=== PATIENT | female | born 1945 | race Caucasian/White ===

== ENCOUNTER 2016-05-04 12:29 | Inpatient (IN) | payer MEDICAID, MEDICARE ==
[~2016-05-04] VITALS: Ht 152.4 cm; Wt 86.2 kg
[~2016-05-04 12:29] MED LIST: ACET500T68 PO; ACYC400T PO; ALBU0.63 NEB; AMLO10TA2 PO; ASPI81TA9 PO; ATOR20TA58 PO; BUDE10.2 IH; CARV6.252 PO; CHOL10003 PO; D-ME118S2 PO; ESCI10TA PO; GABA600T2 PO; INSU100I27 SQ; INSU100V13 SQ; INSU100V9 SQ; LEVO750T31 PO; LOSA100T6 PO; LOSA1TAB17 PO; METF500T4 PO; MONT10TA6 PO; POTA10TA5 PO; PRED20TA PO; VENTOLIN HFA18 GM IH
[2016-05-04] MEDS ORDERED: FENTANYL PF 100 MCG/2 ML VIAL. IV PRN ×2 (13:30→14:30)
[2016-05-04 13:31] LABS: BASO % 0 % (0-3); EOS % 1 % (0-3); HEMATOCRIT 43.7 % (36.0-47.0); HEMOGLOBIN 14.2 g/dL (12.0-15.5); LYMPH # 1.1 x10^3/uL (1.0-4.8); LYMPH % 17 % (24-48); MEAN CORPUSCULAR HEMOGLOBIN 34 pg (25-35); MEAN CORPUSCULAR HGB CONC 33 g/dL (31-37); MEAN CORPUSCULAR VOLUME 104 fL (79-100); MONO % 6 % (0-9); NEUT % 75 % (31-73); PLATELET COUNT 172 x10^3/uL (140-400); RED BLOOD COUNT 4.21 x10^6/uL (3.50-5.40); RED CELL DISTRIBUTION WIDTH 13.2 % (11.5-14.5); WHITE BLOOD COUNT 6.3 x10^3/uL (4.0-11.0)
[2016-05-04 13:40] LABS: CALCIUM 8.6 mg/dL (8.5-10.1); CREATININE 1.6 mg/dL (0.6-1.0); GFR 32.1; POTASSIUM 5.8 mmol/L (3.5-5.1)
[2016-05-04 13:45] LABS: ALBUMIN 3.6 g/dL (3.4-5.0); ALBUMIN/GLOBULIN RATIO 0.9 (1.0-1.7); TOTAL BILIRUBIN 0.3 mg/dL (0.2-1.0); TOTAL PROTEIN 7.6 g/dL (6.4-8.2)
[2016-05-04 13:46] LABS: BILIRUBIN,URINE NEGATIVE (NEG); GLUCOSE,URINE >=1000 mg/dL (NEG); NITRITE,URINE NEGATIVE (NEG); PH,URINE 5.5; PROTEIN,URINE 100 mg/dL (NEG-TRACE); UROBILINOGEN,URINE 0.2 mg/dL (0.2 mg/dL)
[2016-05-04 14:03] LABS: BACTERIA,URINE 0 /HPF (0-FEW); RBC,URINE TNTC /HPF (0-2); SQUAMOUS EPITHELIAL CELL,UR FEW /LPF; WBC,URINE RARE /HPF (0-4)
--- NOTE | 2016-05-04 14:11 | RAD ---
Indication: Severe left flank pain beginning this morning. Technique: Axial images and coronal and sagittal reformatted images are provided. No comparison is available. One or more of the following individualized dose reduction techniques were utilized for this examination: 1. Automated exposure control 2. Adjustment of the mA and/or kV according to patient size 3. Use of iterative reconstruction technique Findings: There is atelectasis in the lung bases. There is no pleural effusion. The heart is not enlarged. Coronary artery calcifications are noted. Solid organ evaluation is limited without contrast. There is fatty infiltration of the liver. Gallbladder is unremarkable. Spleen is not enlarged. Pancreas and adrenals are unremarkable. There is no definite right ureteral calculus, right ureter hard to follow. There is a nonobstructing 2 mm calculus on the left. Left ureter is mildly dilated in its entirety, with no definite obstructing calculus. There is atheromatous disease in the abdominal aorta without aneurysm. There is a duodenal diverticulum. There is no small bowel obstruction or mural thickening. There are a few diverticula in the colon but no findings of diverticulitis. Normal appendix is noted. There is no bladder calculus. Probable cyst or follicle in the right ovary measures about 3 cm. There is no free pelvic fluid. There are mild degenerative changes in the spine. Impression: 1. Nonobstructing left renal calculus. 2. Dilated left ureter without obstructing stone identified. Differential considerations would include recently passed stone as well as pyelonephritis and ureteritis. Please correlate with UA/UC.
--- NOTE | 2016-05-04 14:25 | PHYS DOC ---
Past Medical History Past Medical History: Asthma, CAD, CHF, COPD, Diabetes-Type II, Hypertension, [place] Additional Past Medical Histor: DIABETIC NEUROPATHY Past Surgical History: Alcohol Use: Occasionally Drug Use: None Adult General Chief Complaint Chief Complaint: ABDOMINAL PAIN HPI HPI Patient is a 70 year old Female brought to the ED by ambulance with the complaint of severe pain on the left side of her groin, abdomen, and back, which makes her think of when she had a kidney stone about 10 years ago. She was fine until this pain started this morning. She's had some nausea, no vomiting. No other GI symptoms. Denies UTI symptoms. No fever or chills. PCP at [facility] Review of Systems Review of Systems Constitutional: Denies fever or chills [] Eyes: Denies change in visual acuity, redness, or eye pain [] HENT: Denies nasal congestion or sore throat [] Respiratory: Denies cough or shortness of breath [] Cardiovascular: Denies chest pain GI: As in history of present illness : Denies dysuria or hematuria [] Musculoskeletal: Denies back pain or joint pain [] Integument: Denies rash or skin lesions [] Neurologic: Denies headache, focal weakness or sensory changes [] Endocrine: Denies polyuria or polydipsia [] Current Medications Current Medications Current Medications Medications (Trade) Dose Ordered Sig/Jarret Start Time Stop Time Status Last Admin Dose Admin Fentanyl Citrate (Fentanyl 2ml Vial) 25 mcg PRN Q15MIN PRN 05/04/16 13:30 05/05/16 13:29 05/04/16 14:27 25 MCG Allergies Allergies Allergies Coded Allergies Type Severity Reaction Last Updated Verified wool Allergy Intermediate 10/09/14 Yes Physical Exam Physical Exam Constitutional: Well developed, well nourished, no acute distress, non-toxic appearance. [] Alert, mentating normally. HENT: Normocephalic, atraumatic, bilateral external ears normal,, nose normal. [ ] Eyes: I, conjunctiva normal, no discharge. [] Neck: Normal range of motion,, no stridor. [] Cardiovascular:Heart rate regular rhythm, no murmur [] Lungs & Thorax: Bilateral breath sounds clear to auscultation [] Abdomen: Obese, nondistended. Patient indicates the area of pain from the left upper groin area around to the left flank with the distribution consistent with kidney stone. The abdomen is not particularly tender. No rebound or guarding. No mass, no pulsatile mass Skin: Warm, dry, no erythema, no rash. [] Back: No tenderness, no CVA tenderness. [] Extremities: No tenderness, no cyanosis, no clubbing, ROM intact, no edema. [] Neurologic: Alert and oriented X 3, normal motor function, normal sensory function, no focal deficits noted. [] Current Patient Data Vital Signs Vital Signs Date Time Temp Pulse Resp B/P Pulse Ox O2 Delivery O2 Flow Rate FiO2 05/04/16 14:00 65 20 132/80 94 Nasal Cannula 2 05/04/16 12:35 98.7 98.7 Lab Values Laboratory Tests Test 05/04/16 12:50 05/04/16 13:15 White Blood Count 6.3x10^3/uL (4.0-11.0) Red Blood Count 4.21x10^6/uL (3.50-5.40) Hemoglobin 14.2g/dL (12.0-15.5) Hematocrit 43.7% (36.0-47.0) Mean Corpuscular Volume 104fL (79-100) H Mean Corpuscular Hemoglobin 34pg (25-35) Mean Corpuscular Hemoglobin Concent 33g/dL (31-37) Red Cell Distribution Width 13.2% (11.5-14.5) Platelet Count 172x10^3/uL (140-400) Neutrophils (%) (Auto) 75% (31-73) H Lymphocytes (%) (Auto) 17% (24-48) L Monocytes (%) (Auto) 6% (0-9) Eosinophils (%) (Auto) 1% (0-3) Basophils (%) (Auto) 0% (0-3) Neutrophils # (Auto) 4.8x10^3uL (1.8-7.7) Lymphocytes # (Auto) 1.1x10^3/uL (1.0-4.8) Monocytes # (Auto) 0.4x10^3/uL (0.0-1.1) Eosinophils # (Auto) 0.1x10^3/uL (0.0-0.7) Basophils # (Auto) 0.0x10^3/uL (0.0-0.2) Sodium Level 139mmol/L (136-145) Potassium Level 5.8mmol/L (3.5-5.1) H Chloride Level 101mmol/L (98-107) Carbon Dioxide Level 26mmol/L (21-32) Anion Gap 12 (6-14) Blood Urea Nitrogen 45mg/dL (7-20) H Creatinine 1.6mg/dL (0.6-1.0) H Estimated GFR (Cockcroft-Gault) 32.1 BUN/Creatinine Ratio 28 (6-20) H Glucose Level 459mg/dL (70-99) H Calcium Level 8.6mg/dL (8.5-10.1) Total Bilirubin 0.3mg/dL (0.2-1.0) Aspartate Amino Transferase (AST) 17U/L (15-37) Alanine Aminotransferase (ALT) 25U/L (14-59) Alkaline Phosphatase 102U/L (46-116) Total Protein 7.6g/dL (6.4-8.2) Albumin 3.6g/dL (3.4-5.0) Albumin/Globulin Ratio 0.9 (1.0-1.7) L Lipase 185U/L (73-393) Urine Collection Type U cath Urine Color Yellow Urine Clarity Cloudy Urine pH 5.5 Urine Specific [place] 1.015 Urine Protein 100mg/dL (NEG-TRACE) Urine Glucose (UA) >=1000mg/dL (NEG) Urine Ketones (Stick) Negativemg/dL (NEG) Urine Blood Large (NEG) Urine Nitrite Negative (NEG) Urine Bilirubin Negative (NEG) Urine Urobilinogen Dipstick 0.2mg/dL (0.2 mg/dL) Urine Leukocyte Esterase Negative (NEG) Urine RBC Tntc/HPF (0-2) Urine WBC Rare/HPF (0-4) Urine Squamous Epithelial Cells Few/LPF Urine Transitional Epithelial Cells Occ/LPF Urine Renal Epithelial Cells /LPF Urine Bacteria 0/HPF (0-FEW) Urine Mucus Slight/LPF Laboratory Tests 05/04/16 12:50 Laboratory Tests 05/04/16 12:50 EKG EKG [] Radiology/Procedures Radiology/Procedures CT scan of the abdomen and pelvis read by the radiologist. There is no left ureter stone noted but there is evidence of left hydro-and consistent with left ureter stone. [] Course & Med Decision Making Course & Med Decision Making Pertinent Labs and Imaging studies reviewed. (See chart for details) 70-year-old female presents by EMS with left flank pain suggestive of left renal colic. She was given a dose of IV pain medicine on arrival and her pain went away and never did come back. Her CT scan was suggestive of left ureter stone but no stone was identified. I wonder if she may have passed the stone just as she got here, we did not collect the stone in the ED but it may be in her bladder or she may have passed it shortly after arrival to the ED. Urinalysis consistent with kidney stone as well. Labs consistent with some dehydration with acute kidney injury. Patient lives alone. I suggest admission to the hospital for IV fluids and resolution of her dehydration and acute kidney injury and she is agreeable to that suggestion. I discussed the case with Dr. Hayward, [facility], who will admit the patient. I wrote bridge orders. The patient remained stable and pain-free after initial resolution of her pain in the emergency department. [] Dragon Disclaimer Dragon Disclaimer This electronic medical record was generated, in whole or in part, using a voice recognition dictation system. Departure Departure Impression: Primary Impression: Dehydration Additional Impression: Elevated serum creatinine Disposition: ADMITTED INPATIENT Admitting Physician: Other Condition: STABLE Referrals: UNKNOWN PCP NAME (PCP) Problem Qualifiers STERLING CONDE MD May 04, 2016 14:25
[2016-05-04] MEDS ORDERED: IV NORMAL SALINE 1000ML BAG 1,000 ML IV ONE (14:30)
[2016-05-04] MEDS ORDERED: ONDANSETRON PF 4 MG/2 ML VIAL. IV PRN (14:30)
--- NOTE | 2016-05-04 15:49 | ACF ---
Admission Forms Criteria DEHYDRATION Clinical Indications for Admission to Inpatient Care (Place 'X' for any and all applicable criteria): Admission is indicated for ANY ONE of the following (1)(2)(3)(4)(5): [X]I. Inpatient admission required rather than observation care (see Dehydration: Observation Care guideline as appropriate) because of ANY ONE of the following: [ ]a) Vomiting that is severe or persistent [ ]b) Severe electrolyte abnormalities requiring inpatient care [ ]c) Hemodynamic instability [ ]d) IV fluid to replace significant ongoing losses (greater than 3 L/m2 per day (10) (11) [ ]e) Parenteral nutrition regimen that must be implemented on inpatient basis [X]f) Other condition,treatment or monitoring requiring inpatient admission [ ]II. Serious cause for dehydration requiring acute hospitalization (eg, bowel obstruction, increased intracranial pressure, infectious cause) Extended stay beyond goal length of stay may be needed for(1)(3 )(4)(17): [ ]a) Chronic severe dehydration [ ]b) Persistent vital sign changes, severe electrolyte imbalance, or diagnosed cause of dehydration that requires continued hospitalization (eg, bowel obstruction, increased intracranial pressure) [ ]c) Older patients (65 years or older) [ ]d) Severe comorbid illness (eg, renal failure, heart failure, poorly controlled diabetes) The original [employer] content created by [employer] has been revised. The portions of the content which have been revised are identified through the use of italic text or in bold, and [facility] has neither reviewed nor approved the modified material. All other unmodified content is copyright [employer]. Please see references footnoted in the original [employer] edition 2016 Admission Criteria Met?: Yes EFRAIN RUEDA May 04, 2016 15:49
[2016-05-04 16:15] VITALS: BP 102/45
[2016-05-04] MEDS ORDERED: INSU100V13 SQ (17:26)
[2016-05-04] MEDS ORDERED: NON FORMULARY ITEM (Albuterol Sulfate (Ventolin Hfa Inhaler) 2 PUFF) IH SCH (18:30)
[2016-05-04] MEDS ORDERED: DEXTROSE 50% 25 GM / 50ML DISP.SYRIN. IV PRN (18:30)
[2016-05-04] MEDS: CARVEDILOL 6.25 MG TABLET PO SCH (18:30)
[2016-05-04] MEDS ORDERED: ALBUTEROL SULFATE 2.5 MG/3 ML NEBU. NEB PRN (18:45)
[2016-05-04 19:00] VITALS: BP 157/58
[2016-05-04] MEDS ORDERED: INSULIN ASPART 300 UNITS/3 ML INSULN.PEN SQ ONE (19:30)
[2016-05-04] MEDS: IV NORMAL SALINE 1000ML BAG 1,000 ML IV PRN (19:36)
--- NOTE | 2016-05-04 19:55 | HP ---
ADMIT DATE: 05/04/2016 CHIEF COMPLAINT: Flank pain, abdominal pain left. HISTORY OF PRESENT ILLNESS: The patient is a 70-year-old woman with COPD, CAD, CHF, ongoing smoking as well as history of renal stones 10+ years ago. She presents to the Emergency Room with severe left upper as well as left flank pain that started this morning. She relates the pain was at least 10/10, sharp, stabbing. She immediately thought that this may be a kidney stone as she had similar symptoms several years back when she had a kidney stone on the right. In the Emergency Room, she was treated with pain medications and CAT scan was obtained. The pain, however, seemed to lindsey by that time. CAT scan did not reveal any stone. The patient has not needed any IV narcotics since. However, in her workup, she was found with a blood sugar greater than 400 as well as labs consistent with acute kidney injury. She was therefore admitted for rehydration, monitoring of blood sugars and pain. On further questioning, the patient relates that her diabetes is actually under very poor control as she typically runs in the 300-400s. PAST MEDICAL HISTORY: CAD, CHF, hypertension, hyperlipidemia, diabetes mellitus, COPD, diabetic neuropathy. FAMILY HISTORY: Positive for diabetes and heart disease in brother as well as parents. SOCIAL HISTORY: Lives by herself, continues to smoke few cigarettes a day, although has had a much heavier habit in the past. Denies any alcohol use. ALLERGIES: No known drug allergies. MEDICATIONS: Home medications reconciled with MAR. REVIEW OF SYSTEMS: The patient feels much better. Pain is minimal in the left abdomen to flank area. Denies any ongoing hematuria. No chest pain, shortness of breath. Rest of organ system review is negative. PHYSICAL EXAMINATION: VITAL SIGNS: Today show blood pressure of 102/45, heart rate of 49, respiratory rate at 18. She is afebrile. GENERAL: This is a morbidly obese 70-year-old woman, alert and oriented, in no acute distress. HEENT: Shows no scleral icterus. Oral mucosa is pink and moist. NECK: Supple. LUNGS: Clear to auscultation bilaterally. CARDIOVASCULAR: Regular rate and rhythm. ABDOMEN: Massively obese. Tenderness to palpation in left upper quadrant, no pain to auscultation in the left flank. Organs could not be palpated. EXTREMITIES: Show no edema. SKIN: Warm, soft dry. LABORATORY DATA: CBC from today shows a WBC of 6.3, hemoglobin 14.2, MCV of 104, platelets of 172, BUN and creatinine of 45 and 1.6, potassium at 5.8, glucose at 459. LFTs within normal limits. Urine negative for infectious symptoms, greater than 1000 for glucose. IMAGING: CT of the abdomen shows nonobstructing left renal calculus, dilated left ureter without obstructing stone identified. ASSESSMENT AND PLAN: The patient is a 70-year-old woman who presented with what appears to be renal colic, although stone is no longer identified and symptoms have resolved leading to the conclusion that she actually passed the stone in the Emergency Room. Nevertheless, with uncontrolled diabetes as well as signs of acute kidney injury, we will admit, rehydrate and try and get her blood sugar back under control. She admits that she did not take her insulin this morning, although apparently her blood sugar control is rather poor. We will obtain hemoglobin A1c and insulin sliding scale. By her doses of b.i.d. Levemir and meal dosing, she appears to be insulin resistant. We will continue all her other home medications. She does have a diagnosis of COPD already and continues to smoke. I discussed with her that this really is not an option and she must stop especially given her heart issues as well. Prophylaxis will be instituted with heparin and H2 luis angel. MARIA T CHENG MD DR: LORNA/nts JOB#: [id number] / [id number] NICOLE
[2016-05-04] MEDS: BUDESONIDE 0.5 MG/2 ML NEBU NEB SCH (20:39)
[2016-05-04] MEDS: ALBUTEROL SULFATE 2.5 MG/3 ML NEBU. NEB SCH (20:39)
[2016-05-04] MEDS ORDERED: INSULIN ASPART 300 UNITS/3 ML INSULN.PEN SQ STA (20:54)
[2016-05-04] MEDS: MONTELUKAST SODIUM 10 MG TABLET. PO SCH (20:58)
[2016-05-04] MEDS: GABAPENTIN 300 MG CAPSULE. PO SCH (20:58)
[2016-05-04] MEDS: ATORVASTATIN CALCIUM 20 MG TABLET PO SCH (20:58)
[2016-05-04] MEDS ORDERED: NON FORMULARY ITEM (Budesonide/Formoterol Fumarate (Symbicort 160-4.5 Mcg Inhaler) 2 PUFF) IH SCH (21:00)
[2016-05-04] MEDS ORDERED: NON FORMULARY ITEM (Albuterol Sulfate (Albuterol Sulfate Neb Soln) 1 VIAL) NEB SCH (21:00)
[2016-05-04] MEDS: INSULIN DETEMIR 300 UNITS/3 ML INSULN.PEN. SQ SCH (21:15)
[2016-05-04 23:00] VITALS: BP 109/33
[2016-05-05] MEDS: IV NORMAL SALINE 1000ML BAG 1,000 ML IV PRN ×2 (02:33→08:14)
[2016-05-05 03:00] VITALS: BP 127/42
[2016-05-05 07:00] VITALS: BP 133/45
[2016-05-05] MEDS: BUDESONIDE 0.5 MG/2 ML NEBU NEB SCH ×2 (07:24→19:44)
[2016-05-05] MEDS: ALBUTEROL SULFATE 2.5 MG/3 ML NEBU. NEB SCH ×4 (07:25→19:44)
[2016-05-05] MEDS: INSULIN ASPART 300 UNITS/3 ML INSULN.PEN SQ SCH ×4 (07:30→17:43)
[2016-05-05] MEDS: ASPIRIN ENTERIC COATED 81 MG TABLET.DR. PO SCH (08:12)
[2016-05-05] MEDS: GABAPENTIN 300 MG CAPSULE. PO SCH ×3 (08:12→21:04)
[2016-05-05] MEDS: ESCITALOPRAM 10 MG TABLET. PO SCH (08:12)
[2016-05-05] MEDS: CARVEDILOL 6.25 MG TABLET PO SCH ×2 (08:13→17:31)
[2016-05-05] MEDS: AMLODIPINE BESYLATE 10 MG TABLET PO SCH (08:13)
[2016-05-05] MEDS: LOSARTAN POTASSIUM 50 MG TABLET. PO SCH (08:14)
[2016-05-05] MEDS: INSULIN DETEMIR 300 UNITS/3 ML INSULN.PEN. SQ SCH (08:23)
--- NOTE | 2016-05-05 09:54 | PDOC ---
PROGRESS NOTES Chief Complaint Chief Complaint renal colic, flank pain better acute renal failure hyperkalemia obesitiy, BMI 37 COPD, 02 req. on 2 l at home, DM2, poor control History of Present Illness History of Present Illness feels much better today, no pain hypoglycemia this AM no other noted s Vitals Vitals Vital Signs Date Time Temp Pulse Resp B/P Pulse Ox O2 Delivery O2 Flow Rate FiO2 05/05/16 08:14 58 133/45 05/05/16 07:25 97 Nasal Cannula 2.0 05/05/16 07:00 97.5 20 97.5 Physical Exam General: Alert, Oriented X3, Cooperative Heart: Regular rate Lungs: Clear Abdomen: Normal bowel sounds, Soft Extremities: No clubbing Skin: No rashes Labs LABS Laboratory Tests Test 05/04/16 12:50 05/04/16 13:15 05/04/16 16:11 05/04/16 20:26 White Blood Count 6.3x10^3/uL (4.0-11.0) Red Blood Count 4.21x10^6/uL (3.50-5.40) Hemoglobin 14.2g/dL (12.0-15.5) Hematocrit 43.7% (36.0-47.0) Mean Corpuscular Volume 104fL (79-100) Mean Corpuscular Hemoglobin 34pg (25-35) Mean Corpuscular Hemoglobin Concent 33g/dL (31-37) Red Cell Distribution Width 13.2% (11.5-14.5) Platelet Count 172x10^3/uL (140-400) Neutrophils (%) (Auto) 75% (31-73) Lymphocytes (%) (Auto) 17% (24-48) Monocytes (%) (Auto) 6% (0-9) Eosinophils (%) (Auto) 1% (0-3) Basophils (%) (Auto) 0% (0-3) Neutrophils # (Auto) 4.8x10^3uL (1.8-7.7) Lymphocytes # (Auto) 1.1x10^3/uL (1.0-4.8) Monocytes # (Auto) 0.4x10^3/uL (0.0-1.1) Eosinophils # (Auto) 0.1x10^3/uL (0.0-0.7) Basophils # (Auto) 0.0x10^3/uL (0.0-0.2) Sodium Level 139mmol/L (136-145) Potassium Level 5.8mmol/L (3.5-5.1) Chloride Level 101mmol/L (98-107) Carbon Dioxide Level 26mmol/L (21-32) Anion Gap 12 (6-14) Blood Urea Nitrogen 45mg/dL (7-20) Creatinine 1.6mg/dL (0.6-1.0) Estimated GFR (Cockcroft-Gault) 32.1 BUN/Creatinine Ratio 28 (6-20) Glucose Level 459mg/dL (70-99) Calcium Level 8.6mg/dL (8.5-10.1) Total Bilirubin 0.3mg/dL (0.2-1.0) Aspartate Amino Transf (AST/SGOT) 17U/L (15-37) Alanine Aminotransferase (ALT/SGPT) 25U/L (14-59) Alkaline Phosphatase 102U/L (46-116) Total Protein 7.6g/dL (6.4-8.2) Albumin 3.6g/dL (3.4-5.0) Albumin/Globulin Ratio 0.9 (1.0-1.7) Lipase 185U/L (73-393) Urine Collection Type U cath Urine Color Yellow Urine Clarity Cloudy Urine pH 5.5 Urine Specific [place] 1.015 Urine Protein 100mg/dL (NEG-TRACE) Urine Glucose (UA) >=1000mg/dL (NEG) Urine Ketones (Stick) Negativemg/dL (NEG) Urine Blood Large (NEG) Urine Nitrite Negative (NEG) Urine Bilirubin Negative (NEG) Urine Urobilinogen Dipstick 0.2mg/dL (0.2 mg/dL) Urine Leukocyte Esterase Negative (NEG) Urine RBC Tntc/HPF (0-2) Urine WBC Rare/HPF (0-4) Urine Squamous Epithelial Cells Few/LPF Urine Transitional Epithelial Cells Occ/LPF Urine Renal Epithelial Cells /LPF Urine Bacteria 0/HPF (0-FEW) Urine Mucus Slight/LPF Glucose (Fingerstick) 483mg/dL (70-99) 500mg/dL (70-99) Test 05/04/16 21:41 05/05/16 07:37 05/05/16 08:24 Glucose (Fingerstick) 385mg/dL (70-99) 42mg/dL (70-99) 231mg/dL (70-99) Review of Systems Review of Systems no n.v.d breathing at baseline Assessment and Plan Assessmemt and Plan consult renal, check labs now needs soc work help, has not ride to doctors appt has not Pulm f/u, consult Dr. Stewart to follow outpatient Problems Medical Problems: (1) Dehydration Status: Acute (2) Elevated serum creatinine Status: Acute Problems: Comment Review of Relevant I have reviewed the following items elisha (where applicable) has been applied. Labs Laboratory Tests Test 05/04/16 12:50 05/04/16 13:15 05/04/16 16:11 05/04/16 20:26 White Blood Count 6.3x10^3/uL (4.0-11.0) Red Blood Count 4.21x10^6/uL (3.50-5.40) Hemoglobin 14.2g/dL (12.0-15.5) Hematocrit 43.7% (36.0-47.0) Mean Corpuscular Volume 104fL (79-100) Mean Corpuscular Hemoglobin 34pg (25-35) Mean Corpuscular Hemoglobin Concent 33g/dL (31-37) Red Cell Distribution Width 13.2% (11.5-14.5) Platelet Count 172x10^3/uL (140-400) Neutrophils (%) (Auto) 75% (31-73) Lymphocytes (%) (Auto) 17% (24-48) Monocytes (%) (Auto) 6% (0-9) Eosinophils (%) (Auto) 1% (0-3) Basophils (%) (Auto) 0% (0-3) Neutrophils # (Auto) 4.8x10^3uL (1.8-7.7) Lymphocytes # (Auto) 1.1x10^3/uL (1.0-4.8) Monocytes # (Auto) 0.4x10^3/uL (0.0-1.1) Eosinophils # (Auto) 0.1x10^3/uL (0.0-0.7) Basophils # (Auto) 0.0x10^3/uL (0.0-0.2) Sodium Level 139mmol/L (136-145) Potassium Level 5.8mmol/L (3.5-5.1) Chloride Level 101mmol/L (98-107) Carbon Dioxide Level 26mmol/L (21-32) Anion Gap 12 (6-14) Blood Urea Nitrogen 45mg/dL (7-20) Creatinine 1.6mg/dL (0.6-1.0) Estimated GFR (Cockcroft-Gault) 32.1 BUN/Creatinine Ratio 28 (6-20) Glucose Level 459mg/dL (70-99) Calcium Level 8.6mg/dL (8.5-10.1) Total Bilirubin 0.3mg/dL (0.2-1.0) Aspartate Amino Transf (AST/SGOT) 17U/L (15-37) Alanine Aminotransferase (ALT/SGPT) 25U/L (14-59) Alkaline Phosphatase 102U/L (46-116) Total Protein 7.6g/dL (6.4-8.2) Albumin 3.6g/dL (3.4-5.0) Albumin/Globulin Ratio 0.9 (1.0-1.7) Lipase 185U/L (73-393) Urine Collection Type U cath Urine Color Yellow Urine Clarity Cloudy Urine pH 5.5 Urine Specific [place] 1.015 Urine Protein 100mg/dL (NEG-TRACE) Urine Glucose (UA) >=1000mg/dL (NEG) Urine Ketones (Stick) Negativemg/dL (NEG) Urine Blood Large (NEG) Urine Nitrite Negative (NEG) Urine Bilirubin Negative (NEG) Urine Urobilinogen Dipstick 0.2mg/dL (0.2 mg/dL) Urine Leukocyte Esterase Negative (NEG) Urine RBC Tntc/HPF (0-2) Urine WBC Rare/HPF (0-4) Urine Squamous Epithelial Cells Few/LPF Urine Transitional Epithelial Cells Occ/LPF Urine Renal Epithelial Cells /LPF Urine Bacteria 0/HPF (0-FEW) Urine Mucus Slight/LPF Glucose (Fingerstick) 483mg/dL (70-99) 500mg/dL (70-99) Test 05/04/16 21:41 05/05/16 07:37 05/05/16 08:24 Glucose (Fingerstick) 385mg/dL (70-99) 42mg/dL (70-99) 231mg/dL (70-99) Laboratory Tests Test 05/04/16 12:50 05/04/16 13:15 05/04/16 16:11 05/04/16 20:26 White Blood Count 6.3x10^3/uL (4.0-11.0) Red Blood Count 4.21x10^6/uL (3.50-5.40) Hemoglobin 14.2g/dL (12.0-15.5) Hematocrit 43.7% (36.0-47.0) Mean Corpuscular Volume 104fL (79-100) Mean Corpuscular Hemoglobin 34pg (25-35) Mean Corpuscular Hemoglobin Concent 33g/dL (31-37) Red Cell Distribution Width 13.2% (11.5-14.5) Platelet Count 172x10^3/uL (140-400) Neutrophils (%) (Auto) 75% (31-73) Lymphocytes (%) (Auto) 17% (24-48) Monocytes (%) (Auto) 6% (0-9) Eosinophils (%) (Auto) 1% (0-3) Basophils (%) (Auto) 0% (0-3) Neutrophils # (Auto) 4.8x10^3uL (1.8-7.7) Lymphocytes # (Auto) 1.1x10^3/uL (1.0-4.8) Monocytes # (Auto) 0.4x10^3/uL (0.0-1.1) Eosinophils # (Auto) 0.1x10^3/uL (0.0-0.7) Basophils # (Auto) 0.0x10^3/uL (0.0-0.2) Sodium Level 139mmol/L (136-145) Potassium Level 5.8mmol/L (3.5-5.1) Chloride Level 101mmol/L (98-107) Carbon Dioxide Level 26mmol/L (21-32) Anion Gap 12 (6-14) Blood Urea Nitrogen 45mg/dL (7-20) Creatinine 1.6mg/dL (0.6-1.0) Estimated GFR (Cockcroft-Gault) 32.1 BUN/Creatinine Ratio 28 (6-20) Glucose Level 459mg/dL (70-99) Calcium Level 8.6mg/dL (8.5-10.1) Total Bilirubin 0.3mg/dL (0.2-1.0) Aspartate Amino Transf (AST/SGOT) 17U/L (15-37) Alanine Aminotransferase (ALT/SGPT) 25U/L (14-59) Alkaline Phosphatase 102U/L (46-116) Total Protein 7.6g/dL (6.4-8.2) Albumin 3.6g/dL (3.4-5.0) Albumin/Globulin Ratio 0.9 (1.0-1.7) Lipase 185U/L (73-393) Urine Collection Type U cath Urine Color Yellow Urine Clarity Cloudy Urine pH 5.5 Urine Specific [place] 1.015 Urine Protein 100mg/dL (NEG-TRACE) Urine Glucose (UA) >=1000mg/dL (NEG) Urine Ketones (Stick) Negativemg/dL (NEG) Urine Blood Large (NEG) Urine Nitrite Negative (NEG) Urine Bilirubin Negative (NEG) Urine Urobilinogen Dipstick 0.2mg/dL (0.2 mg/dL) Urine Leukocyte Esterase Negative (NEG) Urine RBC Tntc/HPF (0-2) Urine WBC Rare/HPF (0-4) Urine Squamous Epithelial Cells Few/LPF Urine Transitional Epithelial Cells Occ/LPF Urine Renal Epithelial Cells /LPF Urine Bacteria 0/HPF (0-FEW) Urine Mucus Slight/LPF Glucose (Fingerstick) 483mg/dL (70-99) 500mg/dL (70-99) Test 05/04/16 21:41 05/05/16 07:37 05/05/16 08:24 Glucose (Fingerstick) 385mg/dL (70-99) 42mg/dL (70-99) 231mg/dL (70-99) Medications Current Medications Fentanyl Citrate 25 mcg 25 mcg PRN Q15MIN PRN IV PAIN GREATER THAN 3/10 Last administered on 05/04/16 14:27; Start 05/04/16 at 13:30; Stop 05/05/16 at 13:29 Sodium Chloride (Iv Sodium Chloride 0.9% 1000ml Bag) 1,000 ml @ 1,000 mls/hr 1X ONCE IV Last administered on 05/04/16 14:26; Start 05/04/16 at 14:30; Stop 05/05/16 at 09:44; Status DC Ondansetron HCl (Zofran) 4 mg PRN Q8HRS PRN IV NAUSEA/VOMITING; Start 05/04/16 at 14:30; Stop 05/05/16 at 14:29 Fentanyl Citrate 25 mcg 25 mcg PRN Q2HR PRN IV PAIN; Start 05/04/16 at 14:30; Stop 05/05/16 at 14:29 Sodium Chloride (Iv Sodium Chloride 0.9% 1000ml Bag) 1,000 ml @ 75 mls/hr CONT PRN IV SEE COMMENTS Last administered on 05/05/16 08:14; Start 05/04/16 at 18 :30 Dextrose 12.5 gm PRN Q15MIN PRN IV SEE COMMENTS Last administered on 05/05/16 08:10; Start 05/04/16 at 18:30 Amlodipine Besylate (Norvasc) 10 mg DAILY PO Last administered on 05/05/16 08: 13; Start 05/05/16 at 09:00 Aspirin (Ecotrin) 81 mg DAILY PO Last administered on 05/05/16 08:12; Start at 09:00 Atorvastatin Calcium (Lipitor) 20 mg QHS PO Last administered on 05/04/16 20: 58; Start 05/04/16 at 21:00 Carvedilol (Coreg) 6.25 mg BIDWMEALS PO Last administered on 05/05/16 08:13; Start 05/04/16 at 18:30 Escitalopram Oxalate (Lexapro) 10 mg DAILY PO Last administered on 05/05/16 08 :12; Start 05/05/16 at 09:00 Montelukast Sodium (Singulair) 10 mg QHS PO Last administered on 05/04/16 20: 58; Start 05/04/16 at 21:00 Non-Formulary Medication 1 vial QID NEB ; Start 05/04/16 at 21:00; Stop at 21:00; Status DC Non-Formulary Medication 2 puff PRN Q4-6HRS IH ; Start 05/04/16 at 18:30; Stop 05/04/16 at 19:01; Status DC Non-Formulary Medication 2 puff BID IH ; Start 05/04/16 at 21:00; Stop 05/04/16 at 21:00; Status DC Gabapentin (Neurontin) 600 mg TID PO Last administered on 05/05/16 08:12; Start 05/04/16 at 21:00 Insulin Detemir (Levemir) 90 units BID SQ Last administered on 05/05/16 08:23 ; Start 05/04/16 at 21:00 Insulin Aspart (Novolog) 90 units TIDWMEALS SQ ; Start 05/05/16 at 07:30 Losartan Potassium (Cozaar) 100 mg DAILY PO Last administered on 05/05/16 08: 14; Start 05/05/16 at 09:00 Budesonide (Pulmicort) 0.5 mg RTBID NEB Last administered on 05/05/16 07:24; Start 05/04/16 at 20:00 Albuterol Sulfate (Ventolin Neb Soln) 2.5 mg PRN Q4HRS PRN NEB SHORTNESS OF BREATH; Start 05/04/16 at 18:45 Albuterol Sulfate (Ventolin Neb Soln) 2.5 mg RTQID NEB Last administered on 07:25; Start 05/04/16 at 20:00 Insulin Aspart (Novolog) 40 units 1X ONCE SQ Last administered on 05/04/16 19 :49; Start 05/04/16 at 19:30; Stop 05/04/16 at 19:31; Status DC Insulin Aspart (Novolog) 40 units ONCE STAT SQ Last administered on 05/04/16 21:15; Start 05/04/16 at 20:54; Stop 05/04/16 at 20:58; Status DC Active Scripts Active Losartan Potassium 100 Mg Tablet 100 Mg PO DAILY Singulair Tablet (Montelukast Sodium) 10 Mg Tablet 10 Mg PO QHS Reported Levemir (Insulin Detemir) 100 Unit/1 Ml Vial 90 Unit SQ BID Gabapentin 600 Mg Tablet 1 Tab PO TID Apidra (Insulin Glulisine) 100 Unit/1 Ml Vial 90 Unit SQ TIDWMEALS Escitalopram Oxalate 10 Mg Tablet 1 Tab PO DAILY Carvedilol 6.25 Mg Tablet 1 Tab PO BID Ventolin Hfa Inhaler (Albuterol Sulfate) 18 Gm Hfa.aer.ad 2 Puff IH PRN Q4-6HRS Albuterol Sulfate Neb Soln (Albuterol Sulfate) 0.63 Mg/3 Ml Vial.neb 1 Vial NEB QID Symbicort 160-4.5 Mcg Inhaler (Budesonide/Formoterol Fumarate) 10.2 Gm Hfa.aer.ad 2 Puff IH BID Atorvastatin Calcium 20 Mg Tablet 1 Tab PO DAILY Amlodipine Besylate 10 Mg Tablet 1 Tab PO DAILY Aspirin Ec (Aspirin) 81 Mg Tablet.dr 1 Tab PO DAILY Vitals/I & O Vital Sign - Last 24 Hours 05/04/16 05/04/16 05/04/16 05/04/16 12:35 13:00 14:00 15:00 Temp 98.7 98.7 Pulse 63 77 65 65 Resp 24 20 20 20 B/P 165/72 144/78 132/80 134/81 Pulse Ox 90 94 94 94 O2 Delivery Room Air Nasal Cannula Nasal Cannula Nasal Cannula O2 Flow Rate 2 2 2 05/04/16 05/04/16 05/04/16 05/04/16 16:00 16:15 16:15 19:00 Temp 98.1 98.1 97.8 98.1 98.1 97.8 Pulse 49 49 63 Resp 18 18 18 B/P 102/45 102/45 157/58 Pulse Ox 94 94 90 O2 Delivery Nasal Cannula Nasal Cannula Nasal Cannula Room Air O2 Flow Rate 2.0 1.0 1.0 05/04/16 05/04/16 05/04/16 05/04/16 20:00 20:43 20:44 23:00 Temp 98.2 98.2 Pulse 64 Resp 18 B/P 109/33 Pulse Ox 92 92 95 O2 Delivery Nasal Cannula Room Air Room Air Room Air O2 Flow Rate 2.0 05/05/16 05/05/16 05/05/16 05/05/16 03:00 07:00 07:25 08:13 Temp 98.2 97.5 98.2 97.5 Pulse 63 58 58 Resp 18 20 B/P 127/42 133/45 133/45 Pulse Ox 93 98 97 O2 Delivery Nasal Cannula Nasal Cannula Nasal Cannula O2 Flow Rate 2.0 2.0 2.0 05/05/16 05/05/16 08:13 08:14 Pulse 58 58 B/P 133/45 133/45 Intake and Output 05/04/16 05/04/16 05/05/16 15:00 23:00 07:00 Intake Total 2240 ml 1818 ml Output Total 400 ml 1100 ml Balance 1840 ml 718 ml JACKELYN FONSECA MD May 05, 2016 09:54
[2016-05-05 11:00] VITALS: BP 137/50
[2016-05-05 11:57] LABS: BASO % 0 % (0-3); EOS % 2 % (0-3); HEMATOCRIT 39.1 % (36.0-47.0); HEMOGLOBIN 12.6 g/dL (12.0-15.5); LYMPH # 1.4 x10^3/uL (1.0-4.8); LYMPH % 25 % (24-48); MEAN CORPUSCULAR HEMOGLOBIN 34 pg (25-35); MEAN CORPUSCULAR HGB CONC 32 g/dL (31-37); MEAN CORPUSCULAR VOLUME 104 fL (79-100); MONO % 7 % (0-9); NEUT % 66 % (31-73); PLATELET COUNT 159 x10^3/uL (140-400); RED BLOOD COUNT 3.75 x10^6/uL (3.50-5.40); RED CELL DISTRIBUTION WIDTH 13.2 % (11.5-14.5); WHITE BLOOD COUNT 5.6 x10^3/uL (4.0-11.0)
[2016-05-05] MEDS ORDERED: MAGNESIUM SULFATE 2GM 50 ML IV PRN (12:00)
[2016-05-05 12:12] LABS: ALBUMIN/GLOBULIN RATIO 0.9 (1.0-1.7); CALCIUM 8.2 mg/dL (8.5-10.1); CREATININE 1.2 mg/dL (0.6-1.0); GFR 44.7; POTASSIUM 4.9 mmol/L (3.5-5.1); TOTAL BILIRUBIN 0.2 mg/dL (0.2-1.0); TOTAL PROTEIN 6.2 g/dL (6.4-8.2)
--- NOTE | 2016-05-05 12:12 | PDOC2 ---
CONSULT Date of Consult Date of Consult DATE: 05/05/16 TIME: 11:52 Reason for Consult Reason for Consult: JAMIR/ CKD III and ^K Referring Physician Referring Physician: Dr Armstrong Identification/Chief Complaint Chief Complaint Abd Discomfort Problems: Source Source: Chart review, Patient Past Medical History Cardiovascular: CHF, HTN, Hyperlipidemia Pulmonary: Asthma, COPD, Other CENTRAL NERVOUS SYSTEM: Other GI: No pertinent hx Heme/Onc: No pertinent hx Hepatobiliary: No pertinent hx Psych: No pertinent hx Musculoskeletal: Osteoarthritis Rheumatologic: No pertinent hx Infectious disease: No pertinent hx Renal/: No pertinent hx Endocrine: Diabetes Past Surgical History Past Surgical History: , Other Family History Family History: Coronary Artery Disease Social History ALCOHOL: none Drugs: None Lives: with Family Domestic Violence: Neg Current Problem List Problem List Problems Medical Problems: (1) Dehydration Status: Acute (2) Elevated serum creatinine Status: Acute Current Medications Current Medications Current Medications Fentanyl Citrate 25 mcg 25 mcg PRN Q15MIN PRN IV PAIN GREATER THAN 3/10 Last administered on 05/04/16 14:27; Start 05/04/16 at 13:30; Stop 05/05/16 at 13:29 Sodium Chloride (Iv Sodium Chloride 0.9% 1000ml Bag) 1,000 ml @ 1,000 mls/hr 1X ONCE IV Last administered on 05/04/16 14:26; Start 05/04/16 at 14:30; Stop 05/05/16 at 09:44; Status DC Ondansetron HCl (Zofran) 4 mg PRN Q8HRS PRN IV NAUSEA/VOMITING; Start 05/04/16 at 14:30; Stop 05/05/16 at 14:29 Fentanyl Citrate 25 mcg 25 mcg PRN Q2HR PRN IV PAIN; Start 05/04/16 at 14:30; Stop 05/05/16 at 14:29 Sodium Chloride (Iv Sodium Chloride 0.9% 1000ml Bag) 1,000 ml @ 75 mls/hr CONT PRN IV SEE COMMENTS Last administered on 05/05/16 08:14; Start 05/04/16 at 18 :30 Dextrose 12.5 gm PRN Q15MIN PRN IV SEE COMMENTS Last administered on 05/05/16 08:10; Start 05/04/16 at 18:30 Amlodipine Besylate (Norvasc) 10 mg DAILY PO Last administered on 05/05/16 08: 13; Start 05/05/16 at 09:00 Aspirin (Ecotrin) 81 mg DAILY PO Last administered on 05/05/16 08:12; Start at 09:00 Atorvastatin Calcium (Lipitor) 20 mg QHS PO Last administered on 05/04/16 20: 58; Start 05/04/16 at 21:00 Carvedilol (Coreg) 6.25 mg BIDWMEALS PO Last administered on 05/05/16 08:13; Start 05/04/16 at 18:30 Escitalopram Oxalate (Lexapro) 10 mg DAILY PO Last administered on 05/05/16 08 :12; Start 05/05/16 at 09:00 Montelukast Sodium (Singulair) 10 mg QHS PO Last administered on 05/04/16 20: 58; Start 05/04/16 at 21:00 Non-Formulary Medication 1 vial QID NEB ; Start 05/04/16 at 21:00; Stop at 21:00; Status DC Non-Formulary Medication 2 puff PRN Q4-6HRS IH ; Start 05/04/16 at 18:30; Stop 05/04/16 at 19:01; Status DC Non-Formulary Medication 2 puff BID IH ; Start 05/04/16 at 21:00; Stop 05/04/16 at 21:00; Status DC Gabapentin (Neurontin) 600 mg TID PO Last administered on 05/05/16 08:12; Start 05/04/16 at 21:00 Insulin Detemir (Levemir) 90 units BID SQ Last administered on 05/05/16 08:23 ; Start 05/04/16 at 21:00 Insulin Aspart (Novolog) 90 units TIDWMEALS SQ ; Start 05/05/16 at 07:30 Losartan Potassium (Cozaar) 100 mg DAILY PO Last administered on 05/05/16 08: 14; Start 05/05/16 at 09:00 Budesonide (Pulmicort) 0.5 mg RTBID NEB Last administered on 05/05/16 07:24; Start 05/04/16 at 20:00 Albuterol Sulfate (Ventolin Neb Soln) 2.5 mg PRN Q4HRS PRN NEB SHORTNESS OF BREATH; Start 05/04/16 at 18:45 Albuterol Sulfate (Ventolin Neb Soln) 2.5 mg RTQID NEB Last administered on 11:11; Start 05/04/16 at 20:00 Insulin Aspart (Novolog) 40 units 1X ONCE SQ Last administered on 05/04/16 19 :49; Start 05/04/16 at 19:30; Stop 05/04/16 at 19:31; Status DC Insulin Aspart (Novolog) 40 units ONCE STAT SQ Last administered on 05/04/16 21:15; Start 05/04/16 at 20:54; Stop 05/04/16 at 20:58; Status DC Active Scripts Active Losartan Potassium 100 Mg Tablet 100 Mg PO DAILY Singulair Tablet (Montelukast Sodium) 10 Mg Tablet 10 Mg PO QHS Reported Levemir (Insulin Detemir) 100 Unit/1 Ml Vial 90 Unit SQ BID Gabapentin 600 Mg Tablet 1 Tab PO TID Apidra (Insulin Glulisine) 100 Unit/1 Ml Vial 90 Unit SQ TIDWMEALS Escitalopram Oxalate 10 Mg Tablet 1 Tab PO DAILY Carvedilol 6.25 Mg Tablet 1 Tab PO BID Ventolin Hfa Inhaler (Albuterol Sulfate) 18 Gm Hfa.aer.ad 2 Puff IH PRN Q4-6HRS Albuterol Sulfate Neb Soln (Albuterol Sulfate) 0.63 Mg/3 Ml Vial.neb 1 Vial NEB QID Symbicort 160-4.5 Mcg Inhaler (Budesonide/Formoterol Fumarate) 10.2 Gm Hfa.aer.ad 2 Puff IH BID Atorvastatin Calcium 20 Mg Tablet 1 Tab PO DAILY Amlodipine Besylate 10 Mg Tablet 1 Tab PO DAILY Aspirin Ec (Aspirin) 81 Mg Tablet.dr 1 Tab PO DAILY Allergies Allergies: Coded Allergies: wool (Verified Allergy, Intermediate, 10/09/14) ROS Review of System GEN: no Fevers no Chills EYES: no new Visual Complaints ENT: no EN Drainage no Hearing deficiets CVS: no Orthopnea no CP RESP: no SOB no ABRAHAM GI: no Nausea no Vomiting : no Dysuria no Urgency + Left CVA Pain and now resolved HEME: no easy bruising no Palp Ly Nodes NEURO no Focal Weakness no Sz PSYCH: no Suicidal Ideation no Depression SKIN: no Rashes ENDO: no Polyuria or Polydipsia no Hot/Cold Intolerance MU SK: no Arthraigia no Myalgia Physical Exam Physical Exam General Appearance: Awake Alert Oriented x 3 In no Distress; Obese Eyes: VIsion Unchanged Conjunctiva Normal EN: No EN Drainage Mucous Memb. moist Neck: no JVD no JVP Supple no Thyromegaly; Thick neck, hoarse voice CVS: S1 S2 no Murmur No Gallop No Rub tr ankle Edema Resp: n Rales mary Rhonchi no Acc. Muscle use GI: BAS +ve NO Bruit Non Tender Non Distended : n CVA tenderness; no Suprapubic Tenderness SKIN: no Rashes Breast Exam deferred Mu.Sk: Adequate ROM no Muscle Atrophy Heme: Unable to palpate Obvious LAD no palp Splenomegaly NEURO: Good Strength and Tone Cranial Nerves II - XII grossly intact Psych: not Depressed no Active hallucination Vital Signs Vital Signs Date Time Temp Pulse Resp B/P Pulse Ox O2 Delivery O2 Flow Rate FiO2 05/05/16 11:12 Room Air 05/05/16 11:00 97.7 64 20 137/50 91 97.7 05/05/16 07:25 2.0 Assessment & Plan CKD III - Suspect underlying DM NEphropahty + Smallish Left KDiney +/- Obstructiion. Current FLuid and E-lyte status does not necessitate emergent need for Dialysis. Will re-evaluate for Dialysis in am. ^K - suspect due to ^^ FSBS ; correct sugars and reval K; May need Kayexalate Proteinuria - suspect due to DM/ HTNsive /NS - Quantitate HTN: Current BP meds reviewed. See orders for changes. Ct ARB for now Hydronephrosis - check Nuc Med scan with Lasix. May need URO to see if still obstructed. Discussed Plan of Care and prognosis etc. at length with family. Labs Labs Laboratory Tests Test 05/04/16 12:50 05/04/16 13:15 05/04/16 16:11 05/04/16 20:26 White Blood Count 6.3x10^3/uL (4.0-11.0) Red Blood Count 4.21x10^6/uL (3.50-5.40) Hemoglobin 14.2g/dL (12.0-15.5) Hematocrit 43.7% (36.0-47.0) Mean Corpuscular Volume 104fL (79-100) Mean Corpuscular Hemoglobin 34pg (25-35) Mean Corpuscular Hemoglobin Concent 33g/dL (31-37) Red Cell Distribution Width 13.2% (11.5-14.5) Platelet Count 172x10^3/uL (140-400) Neutrophils (%) (Auto) 75% (31-73) Lymphocytes (%) (Auto) 17% (24-48) Monocytes (%) (Auto) 6% (0-9) Eosinophils (%) (Auto) 1% (0-3) Basophils (%) (Auto) 0% (0-3) Neutrophils # (Auto) 4.8x10^3uL (1.8-7.7) Lymphocytes # (Auto) 1.1x10^3/uL (1.0-4.8) Monocytes # (Auto) 0.4x10^3/uL (0.0-1.1) Eosinophils # (Auto) 0.1x10^3/uL (0.0-0.7) Basophils # (Auto) 0.0x10^3/uL (0.0-0.2) Sodium Level 139mmol/L (136-145) Potassium Level 5.8mmol/L (3.5-5.1) Chloride Level 101mmol/L (98-107) Carbon Dioxide Level 26mmol/L (21-32) Anion Gap 12 (6-14) Blood Urea Nitrogen 45mg/dL (7-20) Creatinine 1.6mg/dL (0.6-1.0) Estimated GFR (Cockcroft-Gault) 32.1 BUN/Creatinine Ratio 28 (6-20) Glucose Level 459mg/dL (70-99) Calcium Level 8.6mg/dL (8.5-10.1) Total Bilirubin 0.3mg/dL (0.2-1.0) Aspartate Amino Transf (AST/SGOT) 17U/L (15-37) Alanine Aminotransferase (ALT/SGPT) 25U/L (14-59) Alkaline Phosphatase 102U/L (46-116) Total Protein 7.6g/dL (6.4-8.2) Albumin 3.6g/dL (3.4-5.0) Albumin/Globulin Ratio 0.9 (1.0-1.7) Lipase 185U/L (73-393) Urine Collection Type U cath Urine Color Yellow Urine Clarity Cloudy Urine pH 5.5 Urine Specific [place] 1.015 Urine Protein 100mg/dL (NEG-TRACE) Urine Glucose (UA) >=1000mg/dL (NEG) Urine Ketones (Stick) Negativemg/dL (NEG) Urine Blood Large (NEG) Urine Nitrite Negative (NEG) Urine Bilirubin Negative (NEG) Urine Urobilinogen Dipstick 0.2mg/dL (0.2 mg/dL) Urine Leukocyte Esterase Negative (NEG) Urine RBC Tntc/HPF (0-2) Urine WBC Rare/HPF (0-4) Urine Squamous Epithelial Cells Few/LPF Urine Transitional Epithelial Cells Occ/LPF Urine Renal Epithelial Cells /LPF Urine Bacteria 0/HPF (0-FEW) Urine Mucus Slight/LPF Glucose (Fingerstick) 483mg/dL (70-99) 500mg/dL (70-99) Test 05/04/16 21:41 05/05/16 07:37 05/05/16 08:24 05/05/16 11:16 Glucose (Fingerstick) 385mg/dL (70-99) 42mg/dL (70-99) 231mg/dL (70-99) 284mg/dL (70-99) Laboratory Tests Test 05/04/16 12:50 05/04/16 13:15 05/04/16 16:11 05/04/16 20:26 White Blood Count 6.3x10^3/uL (4.0-11.0) Red Blood Count 4.21x10^6/uL (3.50-5.40) Hemoglobin 14.2g/dL (12.0-15.5) Hematocrit 43.7% (36.0-47.0) Mean Corpuscular Volume 104fL (79-100) Mean Corpuscular Hemoglobin 34pg (25-35) Mean Corpuscular Hemoglobin Concent 33g/dL (31-37) Red Cell Distribution Width 13.2% (11.5-14.5) Platelet Count 172x10^3/uL (140-400) Neutrophils (%) (Auto) 75% (31-73) Lymphocytes (%) (Auto) 17% (24-48) Monocytes (%) (Auto) 6% (0-9) Eosinophils (%) (Auto) 1% (0-3) Basophils (%) (Auto) 0% (0-3) Neutrophils # (Auto) 4.8x10^3uL (1.8-7.7) Lymphocytes # (Auto) 1.1x10^3/uL (1.0-4.8) Monocytes # (Auto) 0.4x10^3/uL (0.0-1.1) Eosinophils # (Auto) 0.1x10^3/uL (0.0-0.7) Basophils # (Auto) 0.0x10^3/uL (0.0-0.2) Sodium Level 139mmol/L (136-145) Potassium Level 5.8mmol/L (3.5-5.1) Chloride Level 101mmol/L (98-107) Carbon Dioxide Level 26mmol/L (21-32) Anion Gap 12 (6-14) Blood Urea Nitrogen 45mg/dL (7-20) Creatinine 1.6mg/dL (0.6-1.0) Estimated GFR (Cockcroft-Gault) 32.1 BUN/Creatinine Ratio 28 (6-20) Glucose Level 459mg/dL (70-99) Calcium Level 8.6mg/dL (8.5-10.1) Total Bilirubin 0.3mg/dL (0.2-1.0) Aspartate Amino Transf (AST/SGOT) 17U/L (15-37) Alanine Aminotransferase (ALT/SGPT) 25U/L (14-59) Alkaline Phosphatase 102U/L (46-116) Total Protein 7.6g/dL (6.4-8.2) Albumin 3.6g/dL (3.4-5.0) Albumin/Globulin Ratio 0.9 (1.0-1.7) Lipase 185U/L (73-393) Urine Collection Type U cath Urine Color Yellow Urine Clarity Cloudy Urine pH 5.5 Urine Specific [place] 1.015 Urine Protein 100mg/dL (NEG-TRACE) Urine Glucose (UA) >=1000mg/dL (NEG) Urine Ketones (Stick) Negativemg/dL (NEG) Urine Blood Large (NEG) Urine Nitrite Negative (NEG) Urine Bilirubin Negative (NEG) Urine Urobilinogen Dipstick 0.2mg/dL (0.2 mg/dL) Urine Leukocyte Esterase Negative (NEG) Urine RBC Tntc/HPF (0-2) Urine WBC Rare/HPF (0-4) Urine Squamous Epithelial Cells Few/LPF Urine Transitional Epithelial Cells Occ/LPF Urine Renal Epithelial Cells /LPF Urine Bacteria 0/HPF (0-FEW) Urine Mucus Slight/LPF Glucose (Fingerstick) 483mg/dL (70-99) 500mg/dL (70-99) Test 05/04/16 21:41 05/05/16 07:37 05/05/16 08:24 05/05/16 11:16 Glucose (Fingerstick) 385mg/dL (70-99) 42mg/dL (70-99) 231mg/dL (70-99) 284mg/dL (70-99) Images Images FINDINGS of Renal US 10/28/2014 Exam is limited by patient body habitus. Right kidney is normal in size measuring 11.8 centimeters in length. No focal renal abnormalities are seen. No evidence of hydronephrosis is identified. No nephrolithiasis is seen. The left kidney measures 9.9 centimeters in length .he No focal renal lesion is seen on the left. No hydronephrosis or nephrolithiasis is identified. Limited visualization of the bladder secondary to Kasper catheter placement. IMPRESSION 1. Limited exam without demonstrable acute renal abnormality. 2. Left kidney appears slightly smaller than the right. This could represent atrophic change Impression: 1. Nonobstructing left renal calculus. 2. Dilated left ureter without obstructing stone identified. Differential considerations would include recently passed stone as well as pyelonephritis and ureteritis. Please correlate with UA/UC. REJI WALLACE MD May 05, 2016 12:12
--- NOTE | 2016-05-05 14:19 | CONS ---
DATE OF CONSULTATION: PRIMARY CARE PHYSICIAN: Irma Hayward MD. REASON FOR CONSULTATION: Elevated creatinine, elevated potassium. HISTORY OF PRESENT ILLNESS: The patient is a 70-year-old female, somewhat on the obese side. She has a known history of kidney stones for at least 10 years. She has been diabetic for 12. No adenopathy that she is aware of. Looking back, she does appear to have some level of chronic renal insufficiency with creatinines running 1.3-1.6 in 2015 and almost 1.6-2.4 in 2016. She does have serious lymphedema in her lower extremities. She attributes this to drinking water. She passed a stone about 2 years ago by her report that was on the right side. This time she developed flank pain abdominal pain on the left and presented to the ER for further evaluation. She had a CT scan done which showed some residual left hydronephrosis and a nonobstructing left renal calculus. She does not have nausea, vomiting, fevers chills that she admits to. She was admitted to the hospital for further evaluation of the above-mentioned problems. PAST MEDICAL HISTORY: Significant for: 1. Longstanding diabetes. 2. Possible CKD. 3. Heart attack. 4. History of congestive heart failure, EF not known. Last echo was in 2014 and was relatively normal. 5. Hypertension hyperlipidemia exogenous obesity, COPD emphysema asthma bronchitis and history of pneumonia ____ at night for sleep apnea, history of kidney stones, section, UTIs, psoriatic arthritis and possible psoriasis, depression, anxiety tobacco abuse, skin cancers in the past. FAMILY HISTORY: Brother is on dialysis. She is diabetic. Mother also is known to have diabetes and cardiovascular disease. Father had lung cancer. SOCIAL HISTORY: Lives by herself, continues to smoke, but is trying to cut down/quit. ALLERGIES: No known drug allergies. For rest of details, see electronic records. REJI WALLACE MD DR: EBONI/tereza JOB#: [id number] / [id number]
[2016-05-05 15:00] VITALS: BP 139/41
--- NOTE | 2016-05-05 18:28 | PDOC ---
PULMONARY PROGRESS NOTES Vitals Vital Signs Date Time Temp Pulse Resp B/P Pulse Ox O2 Delivery O2 Flow Rate FiO2 05/05/16 17:31 83 139/41 05/05/16 15:34 Room Air 05/05/16 15:00 97.6 18 94 97.6 05/05/16 07:25 2.0 General: Alert Lungs: Clear Cardiovascular: S1 Abdomen: Soft Extremities: No Edema, Other Labs Laboratory Tests Test 05/04/16 12:50 05/04/16 13:15 05/04/16 16:11 05/04/16 20:26 White Blood Count 6.3x10^3/uL (4.0-11.0) Red Blood Count 4.21x10^6/uL (3.50-5.40) Hemoglobin 14.2g/dL (12.0-15.5) Hematocrit 43.7% (36.0-47.0) Mean Corpuscular Volume 104fL (79-100) Mean Corpuscular Hemoglobin 34pg (25-35) Mean Corpuscular Hemoglobin Concent 33g/dL (31-37) Red Cell Distribution Width 13.2% (11.5-14.5) Platelet Count 172x10^3/uL (140-400) Neutrophils (%) (Auto) 75% (31-73) Lymphocytes (%) (Auto) 17% (24-48) Monocytes (%) (Auto) 6% (0-9) Eosinophils (%) (Auto) 1% (0-3) Basophils (%) (Auto) 0% (0-3) Neutrophils # (Auto) 4.8x10^3uL (1.8-7.7) Lymphocytes # (Auto) 1.1x10^3/uL (1.0-4.8) Monocytes # (Auto) 0.4x10^3/uL (0.0-1.1) Eosinophils # (Auto) 0.1x10^3/uL (0.0-0.7) Basophils # (Auto) 0.0x10^3/uL (0.0-0.2) Sodium Level 139mmol/L (136-145) Potassium Level 5.8mmol/L (3.5-5.1) Chloride Level 101mmol/L (98-107) Carbon Dioxide Level 26mmol/L (21-32) Anion Gap 12 (6-14) Blood Urea Nitrogen 45mg/dL (7-20) Creatinine 1.6mg/dL (0.6-1.0) Estimated GFR (Cockcroft-Gault) 32.1 BUN/Creatinine Ratio 28 (6-20) Glucose Level 459mg/dL (70-99) Calcium Level 8.6mg/dL (8.5-10.1) Total Bilirubin 0.3mg/dL (0.2-1.0) Aspartate Amino Transf (AST/SGOT) 17U/L (15-37) Alanine Aminotransferase (ALT/SGPT) 25U/L (14-59) Alkaline Phosphatase 102U/L (46-116) Total Protein 7.6g/dL (6.4-8.2) Albumin 3.6g/dL (3.4-5.0) Albumin/Globulin Ratio 0.9 (1.0-1.7) Lipase 185U/L (73-393) Urine Collection Type U cath Urine Color Yellow Urine Clarity Cloudy Urine pH 5.5 Urine Specific [place] 1.015 Urine Protein 100mg/dL (NEG-TRACE) Urine Glucose (UA) >=1000mg/dL (NEG) Urine Ketones (Stick) Negativemg/dL (NEG) Urine Blood Large (NEG) Urine Nitrite Negative (NEG) Urine Bilirubin Negative (NEG) Urine Urobilinogen Dipstick 0.2mg/dL (0.2 mg/dL) Urine Leukocyte Esterase Negative (NEG) Urine RBC Tntc/HPF (0-2) Urine WBC Rare/HPF (0-4) Urine Squamous Epithelial Cells Few/LPF Urine Transitional Epithelial Cells Occ/LPF Urine Renal Epithelial Cells /LPF Urine Bacteria 0/HPF (0-FEW) Urine Mucus Slight/LPF Glucose (Fingerstick) 483mg/dL (70-99) 500mg/dL (70-99) Test 05/04/16 21:41 05/05/16 07:37 05/05/16 08:24 05/05/16 11:16 Glucose (Fingerstick) 385mg/dL (70-99) 42mg/dL (70-99) 231mg/dL (70-99) 284mg/dL (70-99) Test 05/05/16 11:20 05/05/16 16:40 White Blood Count 5.6x10^3/uL (4.0-11.0) Red Blood Count 3.75x10^6/uL (3.50-5.40) Hemoglobin 12.6g/dL (12.0-15.5) Hematocrit 39.1% (36.0-47.0) Mean Corpuscular Volume 104fL (79-100) Mean Corpuscular Hemoglobin 34pg (25-35) Mean Corpuscular Hemoglobin Concent 32g/dL (31-37) Red Cell Distribution Width 13.2% (11.5-14.5) Platelet Count 159x10^3/uL (140-400) Neutrophils (%) (Auto) 66% (31-73) Lymphocytes (%) (Auto) 25% (24-48) Monocytes (%) (Auto) 7% (0-9) Eosinophils (%) (Auto) 2% (0-3) Basophils (%) (Auto) 0% (0-3) Neutrophils # (Auto) 3.7x10^3uL (1.8-7.7) Lymphocytes # (Auto) 1.4x10^3/uL (1.0-4.8) Monocytes # (Auto) 0.4x10^3/uL (0.0-1.1) Eosinophils # (Auto) 0.1x10^3/uL (0.0-0.7) Basophils # (Auto) 0.0x10^3/uL (0.0-0.2) Sodium Level 145mmol/L (136-145) Potassium Level 4.9mmol/L (3.5-5.1) Chloride Level 107mmol/L (98-107) Carbon Dioxide Level 27mmol/L (21-32) Anion Gap 11 (6-14) Blood Urea Nitrogen 35mg/dL (7-20) Creatinine 1.2mg/dL (0.6-1.0) Estimated GFR (Cockcroft-Gault) 44.7 BUN/Creatinine Ratio 29 (6-20) Glucose Level 292mg/dL (70-99) Calcium Level 8.2mg/dL (8.5-10.1) Phosphorus Level 4.4mg/dL (2.6-4.7) Magnesium Level 2.3mg/dL (1.8-2.4) Total Bilirubin 0.2mg/dL (0.2-1.0) Aspartate Amino Transf (AST/SGOT) 21U/L (15-37) Alanine Aminotransferase (ALT/SGPT) 24U/L (14-59) Alkaline Phosphatase 67U/L (46-116) Total Protein 6.2g/dL (6.4-8.2) Albumin 3.0g/dL (3.4-5.0) Albumin/Globulin Ratio 0.9 (1.0-1.7) Glucose (Fingerstick) 129mg/dL (70-99) Laboratory Tests Test 05/04/16 20:26 05/04/16 21:41 05/05/16 07:37 05/05/16 08:24 Glucose (Fingerstick) 500mg/dL (70-99) 385mg/dL (70-99) 42mg/dL (70-99) 231mg/dL (70-99) Test 05/05/16 11:16 05/05/16 11:20 05/05/16 16:40 Glucose (Fingerstick) 284mg/dL (70-99) 129mg/dL (70-99) White Blood Count 5.6x10^3/uL (4.0-11.0) Red Blood Count 3.75x10^6/uL (3.50-5.40) Hemoglobin 12.6g/dL (12.0-15.5) Hematocrit 39.1% (36.0-47.0) Mean Corpuscular Volume 104fL (79-100) Mean Corpuscular Hemoglobin 34pg (25-35) Mean Corpuscular Hemoglobin Concent 32g/dL (31-37) Red Cell Distribution Width 13.2% (11.5-14.5) Platelet Count 159x10^3/uL (140-400) Neutrophils (%) (Auto) 66% (31-73) Lymphocytes (%) (Auto) 25% (24-48) Monocytes (%) (Auto) 7% (0-9) Eosinophils (%) (Auto) 2% (0-3) Basophils (%) (Auto) 0% (0-3) Neutrophils # (Auto) 3.7x10^3uL (1.8-7.7) Lymphocytes # (Auto) 1.4x10^3/uL (1.0-4.8) Monocytes # (Auto) 0.4x10^3/uL (0.0-1.1) Eosinophils # (Auto) 0.1x10^3/uL (0.0-0.7) Basophils # (Auto) 0.0x10^3/uL (0.0-0.2) Sodium Level 145mmol/L (136-145) Potassium Level 4.9mmol/L (3.5-5.1) Chloride Level 107mmol/L (98-107) Carbon Dioxide Level 27mmol/L (21-32) Anion Gap 11 (6-14) Blood Urea Nitrogen 35mg/dL (7-20) Creatinine 1.2mg/dL (0.6-1.0) Estimated GFR (Cockcroft-Gault) 44.7 BUN/Creatinine Ratio 29 (6-20) Glucose Level 292mg/dL (70-99) Calcium Level 8.2mg/dL (8.5-10.1) Phosphorus Level 4.4mg/dL (2.6-4.7) Magnesium Level 2.3mg/dL (1.8-2.4) Total Bilirubin 0.2mg/dL (0.2-1.0) Aspartate Amino Transf (AST/SGOT) 21U/L (15-37) Alanine Aminotransferase (ALT/SGPT) 24U/L (14-59) Alkaline Phosphatase 67U/L (46-116) Total Protein 6.2g/dL (6.4-8.2) Albumin 3.0g/dL (3.4-5.0) Albumin/Globulin Ratio 0.9 (1.0-1.7) Medications Active Scripts Medications Dose Route/Sig Days Date Category Levemir (Insulin Detemir) 100 Unit/1 Ml Vial 90 Unit SQ BID 05/04/16 Reported Losartan Potassium 100 Mg Tablet 100 Mg PO DAILY 08/30/15 Rx Gabapentin 600 Mg Tablet 1 Tab PO TID 10/09/14 Reported Singulair Tablet (Montelukast Sodium) 10 Mg Tablet 10 Mg PO QHS 04/16/14 Rx Apidra (Insulin Glulisine) 100 Unit/1 Ml Vial 90 Unit SQ TIDWMEALS 04/14/14 Reported Escitalopram Oxalate 10 Mg Tablet 1 Tab PO DAILY 04/14/14 Reported Carvedilol 6.25 Mg Tablet 1 Tab PO BID 04/14/14 Reported Ventolin Hfa Inhaler (Albuterol Sulfate) 18 Gm Hfa.aer.ad 2 Puff IH PRN Q4-6HRS 04/14/14 Reported Albuterol Sulfate Neb Soln (Albuterol Sulfate) 0.63 Mg/3 Ml Vial.neb 1 Vial NEB QID 04/14/14 Reported Symbicort 160-4.5 Mcg Inhaler (Budesonide/Formoterol Fumarate) 10.2 Gm Hfa.aer.ad 2 Puff IH BID 04/14/14 Reported Atorvastatin Calcium 20 Mg Tablet 1 Tab PO DAILY 04/14/14 Reported Amlodipine Besylate 10 Mg Tablet 1 Tab PO DAILY 04/14/14 Reported Aspirin Ec (Aspirin) 81 Mg Tablet.dr 1 Tab PO DAILY 04/14/14 Reported Impression . FULL NOTE DICTATED ATELECTASIS COPD CHRONIC RESP FAILURE THANKS JOSEPH MANOZ MD May 05, 2016 18:28
[2016-05-05 18:35] LABS: CALCIUM 8.1 mg/dL (8.5-10.1); CREATININE 1.3 mg/dL (0.6-1.0); GFR 40.7; POTASSIUM 4.2 mmol/L (3.5-5.1)
[2016-05-05 19:32] VITALS: BP 127/43
[2016-05-05] MEDS ORDERED: INSULIN DETEMIR 300 UNITS/3 ML INSULN.PEN. SQ SCH (21:00)
[2016-05-05] MEDS: MONTELUKAST SODIUM 10 MG TABLET. PO SCH (21:04)
[2016-05-05] MEDS: ATORVASTATIN CALCIUM 20 MG TABLET PO SCH (21:04)
[2016-05-05 23:07] VITALS: BP 139/53
--- NOTE | 2016-05-05 23:32 | CONS ---
DATE OF CONSULTATION: 05/05/2016 ATTENDING PHYSICIAN: Dr. Hayward. REASON FOR CONSULTATION: The patient is seen in pulmonary consultation at the request of Dr. Hayward for COPD. HISTORY OF PRESENT ILLNESS: The patient is a 70-year-old that presented with flank pain and abdominal pain, was found to have a nonobstructive left renal calculus, dilated left ureter without obstruction. She has underlying COPD. I was asked to see her in consultation. The patient is short of breath with exertion. She has been wearing oxygen at home for over 5 years. Continues to smoke. No recent acute exacerbations of COPD. She denies fever, chills or night sweats. PAST MEDICAL HISTORY: Chronic respiratory failure, COPD, tobacco dependence, coronary artery disease, congestive heart failure, hypertension, hyperlipidemia, diabetes, diabetic neuropathy. FAMILY HISTORY: Remarkable for diabetes, heart disease. SOCIAL HISTORY: She lives by herself. Continues to smoke. ALLERGIES: No known drug allergies. CURRENT MEDICATIONS: List was reviewed. Please see the MRAD. REVIEW OF SYSTEMS: As indicated above, otherwise a 10-point system was reviewed and negative. PHYSICAL EXAMINATION: GENERAL: She was on 2 liters of oxygen supplementation. No respiratory distress. VITAL SIGNS: Stable. O2 saturation was greater than 92%. HEENT: Eyes, the sclerae were nonicteric. NECK: Jugular venous distention was not elevated. No lymphadenopathy. CHEST: Full expansion. LUNGS: Poor airway flow with no wheezes. CARDIOVASCULAR: Regular rate and rhythm with S1, S2, no S3. ABDOMEN: Soft, nontender, nondistended. EXTREMITIES: No clubbing, cyanosis or pitting edema. NEUROLOGIC: The patient was awake, alert, following commands. A detailed neuro exam was not performed. IMAGING: CT of the abdomen and pelvis revealed some atelectasis in the lung bases. IMPRESSION: 1. Abnormal CT revealing atelectasis of the lung bases. 2. Chronic respiratory failure. 3. Chronic obstructive pulmonary disease. 4. Tobacco dependence. 5. Nonobstructing left renal calculus. 6. Obesity. PLAN: 1. Obtain PA and lateral of the chest. 2. Incentive spirometry. 3. Continue oxygen supplementation. 4. The patient instructed on the importance of discontinuing tobacco use. 5. Nebulized treatments. 6. Pulmicort. I do appreciate the privilege in sharing in this patient's care. JOSEPH MANZO MD DR: Sherry JOB#: [id number] / [id number]
[2016-05-06 03:03] VITALS: BP 131/43
[2016-05-06 05:43] LABS: ALBUMIN 2.9 g/dL (3.4-5.0); CALCIUM 8.2 mg/dL (8.5-10.1); CREATININE 1.3 mg/dL (0.6-1.0); GFR 40.7; PHOSPHORUS 5.3 mg/dL (2.6-4.7); POTASSIUM 4.8 mmol/L (3.5-5.1)
[2016-05-06 07:00] VITALS: BP 140/48
[2016-05-06] MEDS: BUDESONIDE 0.5 MG/2 ML NEBU NEB SCH (07:25)
[2016-05-06] MEDS: INSULIN ASPART 300 UNITS/3 ML INSULN.PEN SQ SCH ×3 (08:00→17:00)
[2016-05-06] MEDS: ALBUTEROL SULFATE 2.5 MG/3 ML NEBU. NEB SCH ×3 (08:00→16:00)
[2016-05-06] MEDS: GABAPENTIN 300 MG CAPSULE. PO SCH ×2 (08:54→14:20)
[2016-05-06] MEDS: AMLODIPINE BESYLATE 10 MG TABLET PO SCH (08:54)
[2016-05-06] MEDS: CARVEDILOL 6.25 MG TABLET PO SCH ×2 (08:55→17:37)
[2016-05-06] MEDS: ESCITALOPRAM 10 MG TABLET. PO SCH (08:55)
[2016-05-06] MEDS: ASPIRIN ENTERIC COATED 81 MG TABLET.DR. PO SCH (08:55)
[2016-05-06] MEDS: LOSARTAN POTASSIUM 50 MG TABLET. PO SCH (08:55)
[2016-05-06] MEDS ORDERED: INSULIN DETEMIR 300 UNITS/3 ML INSULN.PEN. SQ SCH (09:00)
[2016-05-06] MEDS ORDERED: FUROSEMIDE 40 MG/4 ML VIAL IVP ONE (09:15)
[2016-05-06] MEDS ORDERED: BUDE10.2 IH (10:36)
[2016-05-06] MEDS ORDERED: VENTOLIN HFA18 GM IH (10:36)
--- NOTE | 2016-05-06 10:41 | PDOC3 ---
Discharge Summary Visit Information Date of Admission: May 04, 2016 Date of Discharge: May 06, 2016 Admitting Diagnosis: flank pain, dyspnea Final Diagnosis renal colic, flank pain acute renal failure hyperkalemia, hypernatremia (not POA) obesity, BMI 37 COPD, 02 req. on 2 l at home, DM2, poor control tobacco abuse Problems Medical Problems: (1) Acute on chronic renal failure Status: Acute (2) Dehydration Status: Acute (3) Elevated serum creatinine Status: Acute Brief Hospital Course Allergies Allergies Coded Allergies Type Severity Reaction Last Updated Verified wool Allergy Intermediate 10/09/14 Yes Vital Signs Vital Signs Date Time Temp Pulse Resp B/P Pulse Ox O2 Delivery O2 Flow Rate FiO2 05/06/16 08:55 50 140/48 05/06/16 07:50 Nasal Cannula 2.0 05/06/16 07:30 93 05/06/16 07:00 97.9 20 97.9 Lab Results Laboratory Tests Test 05/04/16 12:50 05/04/16 13:15 05/04/16 16:11 05/04/16 20:26 White Blood Count 6.3x10^3/uL (4.0-11.0) Red Blood Count 4.21x10^6/uL (3.50-5.40) Hemoglobin 14.2g/dL (12.0-15.5) Hematocrit 43.7% (36.0-47.0) Mean Corpuscular Volume 104fL (79-100) Mean Corpuscular Hemoglobin 34pg (25-35) Mean Corpuscular Hemoglobin Concent 33g/dL (31-37) Red Cell Distribution Width 13.2% (11.5-14.5) Platelet Count 172x10^3/uL (140-400) Neutrophils (%) (Auto) 75% (31-73) Lymphocytes (%) (Auto) 17% (24-48) Monocytes (%) (Auto) 6% (0-9) Eosinophils (%) (Auto) 1% (0-3) Basophils (%) (Auto) 0% (0-3) Neutrophils # (Auto) 4.8x10^3uL (1.8-7.7) Lymphocytes # (Auto) 1.1x10^3/uL (1.0-4.8) Monocytes # (Auto) 0.4x10^3/uL (0.0-1.1) Eosinophils # (Auto) 0.1x10^3/uL (0.0-0.7) Basophils # (Auto) 0.0x10^3/uL (0.0-0.2) Sodium Level 139mmol/L (136-145) Potassium Level 5.8mmol/L (3.5-5.1) Chloride Level 101mmol/L (98-107) Carbon Dioxide Level 26mmol/L (21-32) Anion Gap 12 (6-14) Blood Urea Nitrogen 45mg/dL (7-20) Creatinine 1.6mg/dL (0.6-1.0) Estimated GFR (Cockcroft-Gault) 32.1 BUN/Creatinine Ratio 28 (6-20) Glucose Level 459mg/dL (70-99) Calcium Level 8.6mg/dL (8.5-10.1) Total Bilirubin 0.3mg/dL (0.2-1.0) Aspartate Amino Transf (AST/SGOT) 17U/L (15-37) Alanine Aminotransferase (ALT/SGPT) 25U/L (14-59) Alkaline Phosphatase 102U/L (46-116) Total Protein 7.6g/dL (6.4-8.2) Albumin 3.6g/dL (3.4-5.0) Albumin/Globulin Ratio 0.9 (1.0-1.7) Lipase 185U/L (73-393) Urine Collection Type U cath Urine Color Yellow Urine Clarity Cloudy Urine pH 5.5 Urine Specific [place] 1.015 Urine Protein 100mg/dL (NEG-TRACE) Urine Glucose (UA) >=1000mg/dL (NEG) Urine Ketones (Stick) Negativemg/dL (NEG) Urine Blood Large (NEG) Urine Nitrite Negative (NEG) Urine Bilirubin Negative (NEG) Urine Urobilinogen Dipstick 0.2mg/dL (0.2 mg/dL) Urine Leukocyte Esterase Negative (NEG) Urine RBC Tntc/HPF (0-2) Urine WBC Rare/HPF (0-4) Urine Squamous Epithelial Cells Few/LPF Urine Transitional Epithelial Cells Occ/LPF Urine Renal Epithelial Cells /LPF Urine Bacteria 0/HPF (0-FEW) Urine Mucus Slight/LPF Glucose (Fingerstick) 483mg/dL (70-99) 500mg/dL (70-99) Test 05/04/16 21:41 05/05/16 07:37 05/05/16 08:24 05/05/16 11:16 Glucose (Fingerstick) 385mg/dL (70-99) 42mg/dL (70-99) 231mg/dL (70-99) 284mg/dL (70-99) Test 05/05/16 11:20 05/05/16 16:40 05/05/16 18:15 05/05/16 20:47 White Blood Count 5.6x10^3/uL (4.0-11.0) Red Blood Count 3.75x10^6/uL (3.50-5.40) Hemoglobin 12.6g/dL (12.0-15.5) Hematocrit 39.1% (36.0-47.0) Mean Corpuscular Volume 104fL (79-100) Mean Corpuscular Hemoglobin 34pg (25-35) Mean Corpuscular Hemoglobin Concent 32g/dL (31-37) Red Cell Distribution Width 13.2% (11.5-14.5) Platelet Count 159x10^3/uL (140-400) Neutrophils (%) (Auto) 66% (31-73) Lymphocytes (%) (Auto) 25% (24-48) Monocytes (%) (Auto) 7% (0-9) Eosinophils (%) (Auto) 2% (0-3) Basophils (%) (Auto) 0% (0-3) Neutrophils # (Auto) 3.7x10^3uL (1.8-7.7) Lymphocytes # (Auto) 1.4x10^3/uL (1.0-4.8) Monocytes # (Auto) 0.4x10^3/uL (0.0-1.1) Eosinophils # (Auto) 0.1x10^3/uL (0.0-0.7) Basophils # (Auto) 0.0x10^3/uL (0.0-0.2) Sodium Level 145mmol/L (136-145) 146mmol/L (136-145) Potassium Level 4.9mmol/L (3.5-5.1) 4.2mmol/L (3.5-5.1) Chloride Level 107mmol/L (98-107) 110mmol/L (98-107) Carbon Dioxide Level 27mmol/L (21-32) 27mmol/L (21-32) Anion Gap 11 (6-14) 9 (6-14) Blood Urea Nitrogen 35mg/dL (7-20) 36mg/dL (7-20) Creatinine 1.2mg/dL (0.6-1.0) 1.3mg/dL (0.6-1.0) Estimated GFR (Cockcroft-Gault) 44.7 40.7 BUN/Creatinine Ratio 29 (6-20) Glucose Level 292mg/dL (70-99) 184mg/dL (70-99) Calcium Level 8.2mg/dL (8.5-10.1) 8.1mg/dL (8.5-10.1) Phosphorus Level 4.4mg/dL (2.6-4.7) Magnesium Level 2.3mg/dL (1.8-2.4) Total Bilirubin 0.2mg/dL (0.2-1.0) Aspartate Amino Transf (AST/SGOT) 21U/L (15-37) Alanine Aminotransferase (ALT/SGPT) 24U/L (14-59) Alkaline Phosphatase 67U/L (46-116) Total Protein 6.2g/dL (6.4-8.2) Albumin 3.0g/dL (3.4-5.0) Albumin/Globulin Ratio 0.9 (1.0-1.7) Glucose (Fingerstick) 129mg/dL (70-99) 86mg/dL (70-99) Test 05/06/16 05:00 05/06/16 07:49 Hemoglobin 12.4g/dL (12.0-15.5) Sodium Level 148mmol/L (136-145) Potassium Level 4.8mmol/L (3.5-5.1) Chloride Level 113mmol/L (98-107) Carbon Dioxide Level 27mmol/L (21-32) Anion Gap 8 (6-14) Blood Urea Nitrogen 37mg/dL (7-20) Creatinine 1.3mg/dL (0.6-1.0) Estimated GFR (Cockcroft-Gault) 40.7 Glucose Level 75mg/dL (70-99) Calcium Level 8.2mg/dL (8.5-10.1) Phosphorus Level 5.3mg/dL (2.6-4.7) Magnesium Level 2.2mg/dL (1.8-2.4) Albumin 2.9g/dL (3.4-5.0) Glucose (Fingerstick) 79mg/dL (70-99) Laboratory Tests Test 05/05/16 11:16 05/05/16 11:20 05/05/16 16:40 05/05/16 18:15 Glucose (Fingerstick) 284mg/dL (70-99) 129mg/dL (70-99) White Blood Count 5.6x10^3/uL (4.0-11.0) Red Blood Count 3.75x10^6/uL (3.50-5.40) Hemoglobin 12.6g/dL (12.0-15.5) Hematocrit 39.1% (36.0-47.0) Mean Corpuscular Volume 104fL (79-100) Mean Corpuscular Hemoglobin 34pg (25-35) Mean Corpuscular Hemoglobin Concent 32g/dL (31-37) Red Cell Distribution Width 13.2% (11.5-14.5) Platelet Count 159x10^3/uL (140-400) Neutrophils (%) (Auto) 66% (31-73) Lymphocytes (%) (Auto) 25% (24-48) Monocytes (%) (Auto) 7% (0-9) Eosinophils (%) (Auto) 2% (0-3) Basophils (%) (Auto) 0% (0-3) Neutrophils # (Auto) 3.7x10^3uL (1.8-7.7) Lymphocytes # (Auto) 1.4x10^3/uL (1.0-4.8) Monocytes # (Auto) 0.4x10^3/uL (0.0-1.1) Eosinophils # (Auto) 0.1x10^3/uL (0.0-0.7) Basophils # (Auto) 0.0x10^3/uL (0.0-0.2) Sodium Level 145mmol/L (136-145) 146mmol/L (136-145) Potassium Level 4.9mmol/L (3.5-5.1) 4.2mmol/L (3.5-5.1) Chloride Level 107mmol/L (98-107) 110mmol/L (98-107) Carbon Dioxide Level 27mmol/L (21-32) 27mmol/L (21-32) Anion Gap 11 (6-14) 9 (6-14) Blood Urea Nitrogen 35mg/dL (7-20) 36mg/dL (7-20) Creatinine 1.2mg/dL (0.6-1.0) 1.3mg/dL (0.6-1.0) Estimated GFR (Cockcroft-Gault) 44.7 40.7 BUN/Creatinine Ratio 29 (6-20) Glucose Level 292mg/dL (70-99) 184mg/dL (70-99) Calcium Level 8.2mg/dL (8.5-10.1) 8.1mg/dL (8.5-10.1) Phosphorus Level 4.4mg/dL (2.6-4.7) Magnesium Level 2.3mg/dL (1.8-2.4) Total Bilirubin 0.2mg/dL (0.2-1.0) Aspartate Amino Transf (AST/SGOT) 21U/L (15-37) Alanine Aminotransferase (ALT/SGPT) 24U/L (14-59) Alkaline Phosphatase 67U/L (46-116) Total Protein 6.2g/dL (6.4-8.2) Albumin 3.0g/dL (3.4-5.0) Albumin/Globulin Ratio 0.9 (1.0-1.7) Test 05/05/16 20:47 05/06/16 05:00 05/06/16 07:49 Glucose (Fingerstick) 86mg/dL (70-99) 79mg/dL (70-99) Hemoglobin 12.4g/dL (12.0-15.5) Sodium Level 148mmol/L (136-145) Potassium Level 4.8mmol/L (3.5-5.1) Chloride Level 113mmol/L (98-107) Carbon Dioxide Level 27mmol/L (21-32) Anion Gap 8 (6-14) Blood Urea Nitrogen 37mg/dL (7-20) Creatinine 1.3mg/dL (0.6-1.0) Estimated GFR (Cockcroft-Gault) 40.7 Glucose Level 75mg/dL (70-99) Calcium Level 8.2mg/dL (8.5-10.1) Phosphorus Level 5.3mg/dL (2.6-4.7) Magnesium Level 2.2mg/dL (1.8-2.4) Albumin 2.9g/dL (3.4-5.0) Brief Hospital Course Ms. Perkins is a 70 old admit with dyspnea, cough, , ongoing smoking as well as history of renal stones had flank pain, 11/25, passed a stone after admit and felt better, had dyspnea and e-lyte problems hyperkalemia IV fluid, renal fxn better, Pulm and renal consult lytes better, breathing better with nebs, she was out of one of her scrips, refilled f/u Dr. Her, COPD Dr. Edin Ruiz, CKD 3 and hyperkalemia pulm neb scripts sent to her pharmacy Discharge Information Condition at Discharge: Improved Follow Up: Weeks Disposition/Orders: D/C to Home Scheduled Albuterol Sulfate (Albuterol Sulfate Neb Soln) 1 VIAL NEB QID (Reported) Albuterol Sulfate (Ventolin Hfa Inhaler) 2 PUFF IH PRN Q4-6HRS (Reported) Amlodipine Besylate (Amlodipine Besylate) 1 TAB PO DAILY (Reported) Aspirin (Aspirin Ec) 1 TAB PO DAILY (Reported) Atorvastatin Calcium (Atorvastatin Calcium) 1 TAB PO DAILY (Reported) Budesonide/Formoterol Fumarate (Symbicort 160-4.5 Mcg Inhaler) 2 PUFF IH BID ( Reported) Carvedilol (Carvedilol) 1 TAB PO BID (Reported) Escitalopram Oxalate (Escitalopram Oxalate) 1 TAB PO DAILY (Reported) Gabapentin (Gabapentin) 1 TAB PO TID (Reported) Insulin Detemir (Levemir) 90 UNIT SQ BID (Reported) Insulin Glulisine (Apidra) 90 UNIT SQ TIDWMEALS (Reported) Losartan Potassium (Losartan Potassium) 100 MG PO DAILY Montelukast Sodium (Singulair Tablet) 10 MG PO QHS Patient Instructions Patient Instructions time > 30 min JACKELYN FONSECA MD May 06, 2016 10:41
[2016-05-06 11:00] VITALS: BP 150/35
--- NOTE | 2016-05-06 13:26 | RAD ---
Chest, 2 views, 05/06/2016: History: Shortness of breath Comparison is made to a study from 02/21/2016. The heart size is normal. Basilar opacities are predominantly due to to prominent epicardial fat pads. There is calcific plaquing of the aorta. The pulmonary vascularity is normal. No pulmonary infiltrate is seen. There is no evidence of pleural fluid. Moderate hypertrophic spurring is present in the spine. IMPRESSION: No acute cardiopulmonary abnormality is detected.
--- NOTE | 2016-05-06 13:37 | RAD ---
Radionuclide renal scan with Lasix, 05/06/2016: History: Left flank pain Imaging of the kidneys was performed following IV injection of 11.5 mCi of technetium 99m MAG3. The dynamic flow study demonstrates prompt perfusion of both kidneys. There is prompt uptake of the radionuclide by both kidneys. Peak parenchymal activity occurs on the right at 3 minutes and on the left at 4 minutes. 56% of the overall renal activity occurs on the right and 44% on the left. 40 mg of Lasix was administered IV at 18 minutes. There is good washout of activity from the renal pelves and ureters without evidence of obstruction. There is minimal parenchymal retention bilaterally. IMPRESSION: 1. No evidence of significant ureteral obstruction. 2. Minimal bilateral parenchymal retention of activity compatible with nonspecific medical renal disease.
[2016-05-06 15:00] VITALS: BP 149/50
[2016-05-06 17:14] LABS: UR PROTEIN RD 35.7 mg/dL (Not Estab.)
[2016-05-06 17:37] VITALS: BP 149/50
== END 2016-05-06 18:20 | disposition home or self-care (01) | DRG 683 ==
LOC: ER 12:29 → 4 NORTH 14:27
PROVIDERS: ADMIT Internal Medicine Hematology & Oncology; ATTEND Internal Medicine Hematology & Oncology
DX: N17.0 Acute kidney failure with tubular necrosis (principal); J96.10 Chronic respiratory failure, unspecified whether with hypoxia or hypercapnia; E87.0 Hyperosmolality and hypernatremia; J98.11 Atelectasis; I13.0 Hypertensive heart and chronic kidney disease with heart failure and stage 1 through stage 4 chronic kidney disease, or unspecified chronic kidney disease; N13.2 Hydronephrosis with renal and ureteral calculous obstruction; E86.0 Dehydration; J44.9 Chronic obstructive pulmonary disease, unspecified; I89.0 Lymphedema, not elsewhere classified; I50.9 Heart failure, unspecified; I25.10 Atherosclerotic heart disease of native coronary artery without angina pectoris; J45.909 Unspecified asthma, uncomplicated; N18.3 Chronic kidney disease, stage 3 (moderate); E11.22 Type 2 diabetes mellitus with diabetic chronic kidney disease; E11.40 Type 2 diabetes mellitus with diabetic neuropathy, unspecified; E11.649 Type 2 diabetes mellitus with hypoglycemia without coma; E11.65 Type 2 diabetes mellitus with hyperglycemia; E66.9 Obesity, unspecified; E78.5 Hyperlipidemia, unspecified; E87.5 Hyperkalemia; F17.200 Nicotine dependence, unspecified, uncomplicated; G47.30 Sleep apnea, unspecified; I25.2 Old myocardial infarction; Z68.37 Body mass index [BMI] 37.0-37.9, adult; Z80.1 Family history of malignant neoplasm of trachea, bronchus and lung; Z82.49 Family history of ischemic heart disease and other diseases of the circulatory system; Z83.3 Family history of diabetes mellitus; Z87.01 Personal history of pneumonia (recurrent); Z87.442 Personal history of urinary calculi; Z99.81 Dependence on supplemental oxygen; Z88.8 Allergy status to other drugs, medicaments and biological substances
CPT/HCPCS: 36415; 51701; 71020; 74176; 78708; 80048; 80053; 80069; 81001; 82570; 82947; 83690; 83735; 84100; 84156; 85018; 85027; 94250; 94640; 94760; 96361; 96374; 96375; A9562; G0238; J1815; J1940; J3010; J7030; J7042; 99285-25